=== PATIENT | female | born 1965 | race Caucasian/White ===

== ENCOUNTER 2024-02-20 07:46 | Day surgery (SDC) | payer OTHER, SELFPAY ==
--- NOTE | 2024-02-20 | MR_ITS ---
[address] [address] Patient Name: FRED ARREOLA MRN: [id number] date: 1965 Sex: F Assigned Patient Location: MRI Current Patient Location: MRI Accession/Order Number: [id number] Exam Date: 02/20/2024 09:45 Report Date: 02/21/2024 05:40 At the request of: RENATA VERDUGO Procedure: MR shoulder RT w con EXAMINATION: MR shoulder RT w con HISTORY: Right Shoulder Internal Derangement COMPARISON: No relevant comparison available. TECHNIQUE: A variety of imaging planes and parameters were utilized for visualization of suspected pathology. Images were performed with intra-articular contrast. FINDINGS: ROTATOR CUFF REGION CUFF TENDONS: Moderate increased signal intensity in the supraspinatus tendon indicates tendon degeneration and/or tendinitis. No cande tear is seen. CUFF MUSCLES: Normal appearing muscles. DELTOID: No significant atrophy or tear. LONG BICEPS TENDON: Normal. No abnormal signal, attrition, or tear. LABRUM/BICEPS ANCHOR SUPERIOR: Suspect small tear superior labrum. ANTERIOR/INFERIOR: No visible tear or attrition. POSTERIOR: No posterior labrum abnormality. CAPSULE ANTERIOR/INFERIOR: No visible capsular laxity or thickening. Type I origin of the middle glenohumeral ligament. POSTERIOR: No visible capsular laxity or thickening. AC JOINT REGION AC JOINT: Mild osteoarthropathy with no significant narrowing of the underlying coracoacromial arch. AC LIGAMENTS: Normal acromioclavicular ligament. CC LIGAMENTS: Normal coracoclavicular ligaments. ACROMION: Normal horizontal (Type I) configuration. SUBACROMIAL BURSA: Normal. No significant effusion. HYALINE CARTILAGE: No visible cartilage narrowing or focal defect. OTHER BONES: Normal proximal humerus, glenoid, and coracoid. OTHER OBSERVATIONS: Negative. No other significant findings or glenohumeral effusion. MR/MR shoulder RT w con IMPRESSION: 1. Suspect tear superior labrum. 2. Mild strain of the supraspinatus tendon. Electronically authenticated by: ALEJANDRA DE SOUZA Date: 02/21/2024 05:40
--- NOTE | 2024-02-20 08:00 | FL_ITS ---
[address] [address] Patient Name: FRED ARREOLA MRN: [id number] date: 1965 Sex: F Assigned Patient Location: MRI Current Patient Location: Accession/Order Number: [id number] Exam Date: 02/20/2024 08:30 Report Date: 02/20/2024 09:55 At the request of: RENATA VERDUGO Procedure: FL guided needle placement EXAMINATION: FL arthrogram shoulder, FL guided needle placement HISTORY: Right Shoulder Internal Derangement FLUORO DOSE: (Cannot calculate) mGy Reference air kerma (Ka,r) COMPARISON: No relevant comparison available. TECHNIQUE: An arthrogram was performed under fluoroscopic guidance using non-ionic contrast material in the usual sterile manner after obtaining informed consent. Standard level fluoroscopic mode of operation utilized. FINDINGS: JOINT: Right shoulder NEEDLE: 25 gauge, 3.5 spinal needle. MEDICATION: 2 mL buffered 1% lidocaine for subcutaneous anesthesia. Approximately 8 mL injected into joint space consisting of a mixture of 5 mL Omnipaque-300, 5 mL 1% Xylocaine and 0.2 mL Dotarem. TECHNIQUE: Anterior approach under fluoroscopic guidance. CLINICAL: No change in pain following the injection. COMPLICATIONS: None. OTHER: Negative. FL/FL guided needle placement IMPRESSION: 1. Technically successful arthrogram without complication. 2. Please see separate MRI arthrogram report. Electronically authenticated by: ALEJANDRA DE SOUZA Date: 02/20/2024 09:55
--- NOTE | 2024-02-20 08:00 | FL_ITS ---
[address] [address] Patient Name: FRED ARREOLA MRN: [id number] date: 1965 Sex: F Assigned Patient Location: MRI Current Patient Location: Accession/Order Number: [id number] Exam Date: 02/20/2024 08:30 Report Date: 02/20/2024 09:55 At the request of: RENATA VERDUGO Procedure: FL arthrogram shoulder EXAMINATION: FL arthrogram shoulder, FL guided needle placement HISTORY: Right Shoulder Internal Derangement FLUORO DOSE: (Cannot calculate) mGy Reference air kerma (Ka,r) COMPARISON: No relevant comparison available. TECHNIQUE: An arthrogram was performed under fluoroscopic guidance using non-ionic contrast material in the usual sterile manner after obtaining informed consent. Standard level fluoroscopic mode of operation utilized. FINDINGS: JOINT: Right shoulder NEEDLE: 25 gauge, 3.5 spinal needle. MEDICATION: 2 mL buffered 1% lidocaine for subcutaneous anesthesia. Approximately 8 mL injected into joint space consisting of a mixture of 5 mL Omnipaque-300, 5 mL 1% Xylocaine and 0.2 mL Dotarem. TECHNIQUE: Anterior approach under fluoroscopic guidance. CLINICAL: No change in pain following the injection. COMPLICATIONS: None. OTHER: Negative. FL/FL arthrogram shoulder IMPRESSION: 1. Technically successful arthrogram without complication. 2. Please see separate MRI arthrogram report. Electronically authenticated by: ALEJANDRA DE SOUZA Date: 02/20/2024 09:55
[2024-02-20] MEDS: LIDOCAINE HCL 15 ML, SODIUM BICARBONATE 2 MEQ INJ (09:05)
--- NOTE | 2024-02-20 09:36 | SUR.PREOP ---
02/12/24 Pt instructed on procedure, date, time, and prep.
== END 2024-02-20 09:25 | disposition home or self-care (01) ==
LOC: MRI 07:53
PROVIDERS: Radiology Diagnostic Radiology; Visit Provider Personal Emergency Response Attendant
DX: M24.811 Other specific joint derangements of right shoulder, not elsewhere classified (principal); S46.811A Strain of other muscles, fascia and tendons at shoulder and upper arm level, right arm, initial encounter
CPT/HCPCS: 23350; 73222; 77002; A9575; Q9967